=== PATIENT | female | born 1995 | race Caucasian/White ===

== ENCOUNTER → 2020-07-11 | Outpatient (CLI) | payer OTHER | END | disposition home or self-care (01) | LOC: MRI 11:35 | PROVIDERS: ATTEND Physical Medicine & Rehabilitation | DX: M62.838 Other muscle spasm (principal); M54.2 Cervicalgia | CPT/HCPCS: 72141 ==

== ENCOUNTER 2020-10-26 12:52 | Outpatient (CLI) | payer OTHER | END 2020-10-31 10:25 | disposition home or self-care (01) | LOC: OFIC 805 12:52 | PROVIDERS: ATTEND Otolaryngology | DX: H93.8X3 Other specified disorders of ear, bilateral (principal); H69.83 Other specified disorders of Eustachian tube, bilateral; M26.69 Other specified disorders of temporomandibular joint ==

== ENCOUNTER → 2020-11-10 | Outpatient (CLI) | payer OTHER | END | disposition home or self-care (01) | LOC: SONOGRAMA 09:13 | PROVIDERS: ATTEND Otolaryngology | DX: R22.2 Localized swelling, mass and lump, trunk (principal) ==

== ENCOUNTER 2020-12-07 15:39 | Outpatient (CLI) | payer OTHER | END 2020-12-07 17:19 | disposition home or self-care (01) | LOC: OFIC 805 15:39 | PROVIDERS: ATTEND Otolaryngology Otology & Neurotology | DX: H69.83 Other specified disorders of Eustachian tube, bilateral (principal); H93.8X3 Other specified disorders of ear, bilateral; H90.3 Sensorineural hearing loss, bilateral ==

== ENCOUNTER → 2021-03-17 | Outpatient (CLI) | payer OTHER | END | disposition home or self-care (01) | LOC: MRI 10:51 | DX: R19.07 Generalized intra-abdominal and pelvic swelling, mass and lump (principal) | CPT/HCPCS: 72196 ==

== ENCOUNTER 2022-02-02 10:14 | Outpatient (CLI) | payer OTHER | END 2022-02-02 11:00 | disposition home or self-care (01) | LOC: SONOGRAMA 10:14 | PROVIDERS: ATTEND Radiology Diagnostic Radiology | DX: N13.30 Unspecified hydronephrosis (principal) ==